=== PATIENT | male | born 1935 | race Caucasian/White ===

== ENCOUNTER 2018-02-02 10:39 | Emergency (ER) | payer MEDICARE ==
[~2018-02-02] VITALS: Ht 167.6 cm; Wt 68.0 kg
--- OUTSIDE RECORDS SUMMARY | ~2018-02-02 | XMS | Clinical Summary ---
Demographics + + + | Address | [address] | | | [place] [address] | + + + | Home Phone | | + + + | Preferred Language | Unknown | + + + | Marital Status | Unknown | + + + | Rastafari Affiliation | 1025 | + + + | Race | Unknown | + + + | Ethnic Group | Unknown | + + + Author + + + | Author | [facility] | | | and [place] | + + + | Organization | [facility] | | | and [facility] | + + + | Address | Unknown | + + + | Phone | Unavailable | + + + Support + + +---------+ + | Name | Relationship | Address | Phone | + + +---------+ + | Mary Calderon | ECON | Unknown | | + + +---------+ + Care Team Providers + +------+ + | Care Sanding Machine Operator Or Tender Name | Role | Phone | + +------+ + PP | Unavailable | + +------+ + Allergies + + + +--------+ + | Active Allergy | Reactions | Severity | Noted | Comments | | | | | Date | | + + + +--------+ + | Codeine Sulfate | | | | | + + + +--------+ + | Iodine | | | | | + + + +--------+ + | Morphine Sulfate | | | | | + + + +--------+ + Current Medications + + +-------+---------+------+------+-------+ | Prescription | Sig. | Disp. | Refills | Star | End | Statu | | | | | | t | Date | s | | | | | | Date | | | + + +-------+---------+------+------+-------+ | | Take 5-20 mg by | | | 01/23 | | Activ | | amlodipine-benazepri | mouth Daily. | | | 09/11 | | e | | l (LOTREL) 5-20 MG | | | | 12 | | | | per capsule | | | | | | | + + +-------+---------+------+------+-------+ | cyclobenzaprine | 1/2 tablet at | | | 01/23 | | Activ | | (FLEXERIL) 10 mg | bedtime | | | 4/20 | | e | | tablet | | | | 12 | | | + + +-------+---------+------+------+-------+ | aspirin (ADULT | Take 81 mg by mouth | | | 01/23 | | Activ | | ASPIRIN EC LOW | Daily. | | | 4/20 | | e | | STRENGTH) 81 MG EC | | | | 12 | | | | tablet | | | | | | | + + +-------+---------+------+------+-------+ | traMADol (ULTRAM) | TAKE 1-2 TABLETS | | | 02/2 | | Activ | | 50 mg tablet | EVERY 8 HOURS | | | 3/20 | | e | | | NEEDED FOR PAIN | | | 12 | | | + + +-------+---------+------+------+-------+ | meloxicam (MOBIC) | TAKE ONE TABLET BY | | | 02/2 | | Activ | | 7.5 mg tablet | MOUTH 1-2 TIMES | | | 3/20 | | e | | | DAILY NEEDED. | | | 12 | | | + + +-------+---------+------+------+-------+ | Acetaminophen | TABS | | | 02/2 | | Activ | | (TYLENOL PO) | | | | 3/20 | | e | | | | | | 12 | | | + + +-------+---------+------+------+-------+ Active Problems + + + | Problem | Noted Date | + + + | CERVICALGIA | | + + + | DEGENERATIVE DISC DISEASE, CERVICAL SPINE | | + + + | OSTEOARTHRITIS, CERVICAL | | + + + Social History + +-------+ +--------+------+ | Tobacco Use | Types | Packs/Day | Years | Date | | | | | Used | | + +-------+ +--------+------+ | Never Assessed | | | | | + +-------+ +--------+------+ + + + | Sex Assigned at | Date Recorded | | | | + + + | Not on file | | + + + Last Filed Vital Signs + + + + | Vital Sign | Reading | Time Taken | + + + + | Blood Pressure | 150/81 | 03/20/2011 0000 PDT | + + + + | Pulse | - | - | + + + + | Temperature | - | - | + + + + | Respiratory Rate | - | - | + + + + | Oxygen Saturation | - | - | + + + + | Inhaled Oxygen | - | - | | Concentration | | | + + + + | Weight | 78.9 kg (174 lb) | 07/17/2011 0000 PST | + + + + | Height | 170.2 cm (5' 7") | 03/20/2011 0000 PDT | + + + + | Body Mass Index | .25 | 07/17/2011 0000 PST | + + + + Plan of Treatment + + + + + | Health Maintenance | Due Date | Last Done | Comments | + + + + + | Vaccine: | | | | | Dtap/Tdap/Td (1 - | 4 | | | | Tdap) | | | | + + + + + | Vaccine: Zoster (1 | | | | | of 2) | 5 | | | + + + + + | Vaccine: | | | | | Pneumococcal 65+ | 0 | | | | Low/Medium Risk (1 | | | | | of 2 - PCV13) | | | | + + + + + | Vaccine: Influenza | 09/01/201 | | | | (#1) | 8 | | | + + + + + Results Not on filefrom Last 3 Months
--- OUTSIDE RECORDS SUMMARY | ~2018-02-02 | XMS | Clinical Summary ---
Demographics + + + | Address | [address] | | | [place] [address] | + + + | Home Phone | | + + + | Preferred Language | Unknown | + + + | Marital Status | | + + + | Restoration Affiliation | Unknown | + + + | Race | Unknown | + + + | Ethnic Group | Unknown | + + + Author + + + | Author | [facility] | + + + | Organization | [facility] | + + + | Address | Unknown | + + + | Phone | Unavailable | + + + Support + + +---------+ + | Name | Relationship | Address | Phone | + + +---------+ + | Mary Calderon | ECON | Unknown | | + + +---------+ + | Ronald Moore | ECON | Unknown | | + + +---------+ + | Ashutosh Calderon | ECON | Unknown | | + + +---------+ + Care Team Providers + +------+ + | Care Rubber Goods Cutter Finisher Name | Role | Phone | + +------+ + | Elma Hernández | PP | Unavailable | + +------+ + Allergies + + + + + + | Active Allergy | Reactions | Severity | Noted | Comments | | | | | Date | | + + + + + + | Naproxen | Diarrhea | Low | 04/15/20 | | | | | | 16 | | + + + + + + | Iodinated Diagnostic | Anaphylaxis, | High | 04/15/20 | Swelling in eyes | | Agents | Swelling | | 16 | | + + + + + + | Morphine | Hallucinations | Medium | 04/15/20 | | | | | | 16 | | + + + + + + Current Medications + + +-------+---------+------+------+-------+ | Prescription | Sig. | Disp. | Refills | Star | End | Statu | | | | | | t | Date | s | | | | | | Date | | | + + +-------+---------+------+------+-------+ | aspirin 81 MG EC | Take 81 mg by mouth | | | | | Activ | | tablet | every other day. | | | | | e | + + +-------+---------+------+------+-------+ | | Take 1 tablet by | | | | | Activ | | amlodipine-olmesarta | mouth every morning. | | | | | e | | n (DODIE) 5-20 MG per | | | | | | | | tablet | | | | | | | + + +-------+---------+------+------+-------+ | acetaminophen | Take 325 mg by mouth | | | | | Activ | | (TYLENOL) 325 MG | every 6 (six) hours | | | | | e | | tablet | as needed for Pain. 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 | + + Resolved Problems + + + + | Problem | Noted | Resolved | | | Date | Date | + + + + | '[id number]-vfy-[id number]' infant with signs of malnutrition | 04/15/20 | | | | 16 | 6 | + + + + Family History + + +------+ + | Medical History | Relation | Name | Comments | + + +------+ + | Heart disease | Brother | | | + + +------+ + | Cancer | Daughter | | | + + +------+ + | Heart disease | Daughter | | | + + +------+ + | Heart disease | Father | | | + + +------+ + | Cancer | Mother | | | + + +------+ + + +------+ + + | Relation | Name | Status | Comments | + +------+ + + | Brother | | | pacemaker implant/replacement | | | | (Age | | | | | 50) | | + +------+ + + | Daughter | | | aortic valve replacement, uterine cancer | | | | (Age | | | | | 57) | | + +------+ + + | Father | | | Aortic valve replacement,CHF | | | | (Age | | | | | 50) | | + +------+ + + | Mother | | | lung cancer | | | | (Age | | | | | 70) | | + +------+ + + Social History + +-------+ +--------+------+ | Tobacco Use | Types | Packs/Day | Years | Date | | | | | Used | | + +-------+ +--------+------+ | Never Smoker | | | | | + +-------+ +--------+------+ + +---+---+---+ | Smokeless Tobacco: | | | | | Never Used | | | | + +---+---+---+ + + +---------+ + | Alcohol Use | Drinks/We | oz/Week | Comments | | | ek | | | + + +---------+ + | Yes | 0 | 0.0 | 1 beer twice yearly | | | Standard | | | | | drinks or | | | | | | | | | | equivalen | | | | | t | | | + + +---------+ + + + + | Sex Assigned at | Date Recorded | | | | + + + | Not on file | | + + + Last Filed Vital Signs + + + + | Vital Sign | Reading | Time Taken | + + + + | Blood Pressure | 120/68 | 05/20/2017 10:11 AM PST | + + + + | Pulse | 49 | 05/20/2017 10:11 AM PST | + + + + | Temperature | - | - | + + + + | Respiratory Rate | 17 | 04/15/2016 11:26 AM PST | + + + + | Oxygen Saturation | 98% | 05/20/2017 10:11 AM PST | + + + + | Inhaled Oxygen | - | - | | Concentration | | | + + + + | Weight | 71.7 kg (158 lb 1.6 | 05/20/2017 10:11 AM PST | | | oz) | | + + + + | Height | 169.2 cm (5' 6.6") | 05/20/2017 10:11 AM PST | + + + + | Body Mass Index | 25.06 | 05/20/2017 10:11 AM PST | + + + + Plan [...] | + + + + + | Statin Therapy | | | | | (optimal intensity) | 7 | | | + + + + + | Vaccine: Influenza | | | | | (#1) | 8 | | | + + + + + Results Not on filefrom Last 3 Months Insurance + +--------+ +--------+-------+---------+ | Payer | Benefi | Subscriber | Type | Phone | Address | | | t Plan | ID | | | | | | / | | | | | | | Group | | | | | + +--------+ +--------+-------+---------+ | [place] [id number] | [employer] | | | | | [employer] | | re | | | | | | | | | | | | | | | | | | | | | | | | | | | | | | | | | | | | | | | | [place] - | | | | | | | [place] | | | | | + +--------+ +--------+-------+---------+ + +--------+ +--------+ + + | Guarantor Name | Accoun | Relation to | Date | Phone | Billing Address | | | t Type | Patient | of | | | | | | | | | | + +--------+ +--------+ + + | EBER CALDERON | Person | Self [birth year] Home: | [address] | | | [place] | | 1936 | [phone] | [place] [address] | | | [place] | | | [phone] | | + +--------+ +--------+ + +
--- OUTSIDE RECORDS SUMMARY | ~2018-02-02 | XMS | Clinical Summary ---
Demographics + + + | Address | [address] | | | [place] [address] | + + + | Home Phone | | + + + | Preferred Language | Unknown | + + + | Marital Status | Unknown | + + + | Gnosticism Affiliation | 1025 | + + + | Race | Unknown | + + + | Ethnic Group | Unknown | + + + Author + + + | Author | [facility] | | | and [place] | + + + | Organization | [facility] | | | and [facility] | [...] Team Providers + +------+ + | Care Paper Mill Supervisor Name | Role | Phone | + [...]
--- OUTSIDE RECORDS SUMMARY | ~2018-02-02 | XMS | Clinical Summary ---
Demographics + + + | Address | [address] | | | [place] [address] | + + + | Home Phone | | + + + | Preferred Language | Unknown | + + + | Marital Status | | + + + | Yazdanism Affiliation | Unknown | + + + | Race | Unknown | + + + | Ethnic Group | Unknown | + + + Author + + + | Author | [facility] | + + + | Organization | [facility] | + + + | Address [...] Team Providers + +------+ + | Care Director Of Income Tax Name | Role | Phone | + [...] Date | + + + + | 'nyifm-dre-ilkau' infant with signs of malnutrition | 04/15/20 [...] [place] - [place] | [place] - | [id number] | [employer] | | | | | [...] | 1936 | [phone] | [place] [address] | | | [place]a | | | [phone] | | + +--------+ +--------+ + +
[~2018-02-02 10:39] MED LIST: AMLODIPINE-BEN1 EACH PO; ASPIRIN EC81 MG PO; CEPHALEXIN500 M1 PO; PERCOCET 5-3251 EACH PO
== END 2018-02-02 10:55 | disposition home or self-care (01) ==
LOC: ED 10:39
DX: S01.511A Laceration without foreign body of lip, initial encounter (principal); W45.8XXA Other foreign body or object entering through skin, initial encounter

== ENCOUNTER 2021-11-12 10:09 | Emergency (ER) | payer MEDICARE ==
[~2021-11-12] VITALS: Ht 152.4 cm; Wt 68.0 kg
--- NOTE | 2021-11-13 18:18 | EKG ---
[facility] [address] [facility] [place] [address] Signed Atrial fibrillation with premature ventricular or aberrantly conducted complexes Left axis deviation Incomplete right bundle branch block Septal infarct , age undetermined Abnormal ECG No previous ECGs available Confirmed by PENNY ESTRADA MD ([id number]) on 11/13/2021 6:18:05 PM Electronically Signed By: PENNY ESTRADA MD 11/13/211817 PATIENT NAME: OLGAEBER LOPEZ Electrocardiogram DATE OF : 33 PHYSICIAN: PENNY ESTRADA MD REPORT #: [id number] REPORT IS CONFIDENTIAL AND NOT TO BE RELEASED WITHOUT AUTHORIZATION
== END 2021-11-12 14:35 | disposition short-term general hospital (02) ==
LOC: ED 10:09
DX: I24.9 Acute ischemic heart disease, unspecified (principal); R79.89 Other specified abnormal findings of blood chemistry; I48.91 Unspecified atrial fibrillation; I10 Essential (primary) hypertension; Z88.5 Allergy status to narcotic agent; Z91.041 Radiographic dye allergy status; Z79.899 Other long term (current) drug therapy; Z79.82 Long term (current) use of aspirin; Z20.822 Contact with and (suspected) exposure to COVID-19
CPT/HCPCS: 36415; 71046; 80053; 83735; 84484; 85025; 85730; 87502; C9803; J1644; U0003

== ENCOUNTER 2022-04-07 09:40 | Emergency (ER) | payer MEDICARE ==
[~2022-04-07] VITALS: Ht 167.6 cm; Wt 68.0 kg
[2022-04-07] MEDS ORDERED: ELIQUIS5 MG PO (09:50)
[2022-04-07] MEDS ORDERED: ATORVASTATIN CA40 MG PO (09:51)
--- NOTE | 2022-04-07 10:58 | EKG ---
[facility] [address] [facility] [place] [address] Signed Atrial fibrillation with rapid ventricular response with premature ventricular or aberrantly conducted complexes Left axis deviation Septal infarct (cited on or before 12-NOV-2021) Abnormal ECG When compared with ECG of 12-NOV-2021 10:15, Vent. rate has increased BY 39 BPM T wave inversion more evident in Lateral leads Confirmed by NASIM ZEE MD ([id number]) on 04/07/2022 10:58:31 AM Electronically Signed By: NASIM ZEE MD 04/07/22 1058 PATIENT NAME: EBER ESPINOZA Electrocardiogram DATE OF : 33 PHYSICIAN: NASIM ZEE MD REPORT #: [id number] REPORT IS CONFIDENTIAL AND NOT TO BE RELEASED WITHOUT AUTHORIZATION
== END 2022-04-07 12:38 | disposition home or self-care (01) ==
LOC: ED 09:40
DX: I48.91 Unspecified atrial fibrillation (principal); R53.1 Weakness; I10 Essential (primary) hypertension; Z88.5 Allergy status to narcotic agent; Z91.048 Other nonmedicinal substance allergy status; Z79.82 Long term (current) use of aspirin; Z79.899 Other long term (current) drug therapy
CPT/HCPCS: 36415; 70450; 80053; 85025; 93005; 93010; 99285-25

== ENCOUNTER 2022-07-02 02:30 | Emergency (ER) | payer MEDICARE ==
--- NOTE | ~2022-07-02 | EKG ---
[facility] [address] [facility] [place], [place] [address] Draft EK completed, results pending confirmation PATIENT NAME: EBER ESPINOZA JOHN Electrocardiogram DATE OF : 33 PHYSICIAN: PRELIMINARY REPORT #: [id number] REPORT IS CONFIDENTIAL AND NOT TO BE RELEASED WITHOUT AUTHORIZATION
[~2022-07-02 02:30] MED LIST changes: +ATORVASTATIN CA40 MG PO; +ELIQUIS5 MG PO
== END 2022-07-02 04:24 | disposition home or self-care (01) ==
LOC: ED 02:30
PROC: 0HQ1XZZ Repair Face Skin, External Approach (ICD-10-PCS; principal; 2022-07-02)
DX: S01.111A Laceration without foreign body of right eyelid and periocular area, initial encounter (principal); S01.01XA Laceration without foreign body of scalp, initial encounter; S20.219A Contusion of unspecified front wall of thorax, initial encounter; S60.311A Abrasion of right thumb, initial encounter; I48.91 Unspecified atrial fibrillation; I25.2 Old myocardial infarction; Z79.01 Long term (current) use of anticoagulants; I10 Essential (primary) hypertension; Z23 Encounter for immunization; Z88.5 Allergy status to narcotic agent; Z91.041 Radiographic dye allergy status; Z79.899 Other long term (current) drug therapy; Z79.82 Long term (current) use of aspirin; W22.8XXA Striking against or struck by other objects, initial encounter
CPT/HCPCS: 12013; 36415; 70450; 71045; 80053; 84484; 85025; 85610; 85730; 90471; 90714; 93005; 93010; 99285-25; G0480

== ENCOUNTER → 2022-09-20 | Emergency (ER) | payer MEDICARE ==
[~2022-09-20] VITALS: Ht 167.6 cm; Wt 58.1 kg
[~2022-09-20] MED LIST changes: +ISOSORBIDE MONO30 MG PO; +TRAZODONE HCL50 MG PO
[2022-09-20 22:06] VITALS: BP 128/78
== END ==
LOC: ED 18:28
DX: S00.93XA Contusion of unspecified part of head, initial encounter (principal); W19.XXXA Unspecified fall, initial encounter; I10 Essential (primary) hypertension; I25.2 Old myocardial infarction; Z88.5 Allergy status to narcotic agent; Z88.8 Allergy status to other drugs, medicaments and biological substances; Z79.899 Other long term (current) drug therapy; Z79.82 Long term (current) use of aspirin
CPT/HCPCS: 36415; 70450; 73560; 80053; 81001; 85025; 85610; 85730; 90715